=== PATIENT | female | born 1965 | race Two or more races ===

== ENCOUNTER 2022-07-18 08:26 | Emergency (ER) | payer OTHER ==
[~2022-07-18] VITALS: Ht 162.6 cm; Wt 81.0 kg
[2022-07-18] MEDS ORDERED: ACETAMINOPHEN 500 MG TAB PO ONE (09:00)
[2022-07-18 09:41] VITALS: BP 162/88
[2022-07-18] MEDS ORDERED: IBUP800T27 PO (09:48)
[2022-07-18] MEDS ORDERED: METH750T22 PO (09:48)
== END 2022-07-18 10:07 | disposition home or self-care (01) ==
LOC: ER 08:26 → EDBD 08:26 → ER 10:07
DX: S39.012A Strain of muscle, fascia and tendon of lower back, initial encounter (principal); S20.212A Contusion of left front wall of thorax, initial encounter; V49.9XXA Car occupant (driver) (passenger) injured in unspecified traffic accident, initial encounter; Y93.89 Activity, other specified; Y92.89 Other specified places as the place of occurrence of the external cause; Y99.8 Other external cause status
CPT/HCPCS: 71046; 72100; 72220

== ENCOUNTER 2024-07-08 10:40 | Inpatient (IN) | payer MEDICAID ==
[~2024-07-08] VITALS: Ht 142.2 cm; Wt 91.0 kg
[~2024-07-08 10:40] MED LIST: IBUP-1456 PO; METH-1182 PO
--- NOTE | 2024-07-08 10:59 | ED.PDOC ---
History of Present Illness HPI Comments 59-year-old female with PMHx HLD, HTN, DM, Asthma, Thyroid Disease presents with a chief complaint of chest pain, SOB, and fatigue x 1 week. Patient states that her pain is localized to her left chest, radiates down her left arm, describes as aching, and rates her pain a 9/10. Patient mentions that she is also having back pain and swelling to her bilateral feet. Patient denies having a PMD. Patient is slightly hypertensive at 145/93. Patient is wheezing upon auscultation. Time Seen by MD: 10:47 Reviewed Notes: Medications, Allergies Allergies: Coded Allergies: NO KNOWN ALLERGIES (Unverified , 07/18/22) Home Meds Active Scripts Methocarbamol (Methocarbamol) 750 Mg Tab, 750 MG PO QHSP PRN, #20 TAB Prov:VANDANA YAÑEZ 07/18/22 Ibuprofen (Ibuprofen) 800 Mg Tab, 1 TAB PO TID, #30 TAB Prov:VANDANA YAÑEZ 07/18/22 Information Source: Patient, Relative (Child) Mode of Arrival: Ambulatory Severity: Moderate Timing: Days Duration: Since onset Prehospital treatment: None Past Medical History PAST MEDICAL HISTORY: Asthma, DM, High Lipids, HTN, Thyroid Surgical History: Denies all surgeries GLOBAL MARKETING MANAGER History: Denies all GLOBAL MARKETING MANAGER Hx Family History Family History: Reviewed,noncontributory to illness Social History Smoker: Non-Smoker Alcohol: Denies ETOH Use Drugs: Denies Drug Use Lives In: Home Constitutional: reports: fatigue; denies: chills, diaphoresis, fever, malaise, sweats, weakness, others EENTM: denies: blurred vision, double vision, ear bleeding, ear discharge, ear drainage, ear pain, ear ringing, eye pain, eye redness, hearing loss, mouth pain, mouth swelling, nasal discharge, nose bleeding, nose congestion, nose pain, photophobia, tearing, throat pain, throat swelling, voice changes, others Respiratory: reports: shortness of breath; denies: cough, hemoptysis, orthopnea, SOB at rest, SOB with excertion, stridor, wheezing, others Cardiovascular: reports: chest pain; denies: dizzy spells, diaphoresis, Dyspnea on exertion, edema, irregular heart beat, left arm pain, lightheadedness, palpitations, PND, syncope, others Gastrointestinal: denies: abdomen distended, abdominal pain, blood streaked bowels, constipated, diarrhea, dysphagia, difficulty swallowing, hematemesis, melena, nausea, poor appetite, poor fluid intake, rectal bleeding, rectal pain, vomiting, others Genitourinary: denies: abnormal vagina bleeding, burning, dyspareunia, dysuria, flank pain, frequency, hematuria, incontinence, pain, , vagina discharge, urgency, others Neurological: denies: dizziness, fainting, headache, left sided numbness, left sided weakness, numbness, paresthesia, pre-existing deficit, right sided numbness, right sided weakness, seizure, speech problems, tingling, tremors, weakness, others Musculoskeletal: denies: back pain, gout, joint pain, joint swelling, muscle pain, muscle stiffness, neck pain, others Integumetry: denies: bruises, change in color, change in hair/nails, dryness, laceration, lesions, lumps, rash, wounds, others Allergic/Immunocompromised: denies: Difficulty Healing, Frequent Infections, Hives, Itching, others Hematologic/Lymphatic: denies: anemia, blood clots, easy bleeding, easy bruising, swollen glands, others Endocrine: denies: excessive hunger, excessive sweating, excessive thirst, excessive urination, flushing, intolerance to cold, intolerance to heat, unexplained weight gain, unexplained weight loss, others Psychiatric: denies: anxiety, bipolar disorder, depression, hopeless, panic disorder, schizophrenia, sleepless, suicidal, others All Other Systems: Reviewed and Negative Physical Exam General Appearance: Moderate Distress HEENT: Normal ENT Inspection, Pharynx Normal, TMs Normal Neck: Full Range of Motion, Non-Tender, Normal, Normal Inspection Respiratory: Chest Non-Tender, Lungs Clear, No Accessory Muscle Use, No Respiratory Distress, Normal Breath Sounds Cardiovascular: No Edema, No JVD, No Murmur, No Gallop, Normal Peripheral Pulses, Regular Rate/Rhythm Breast Exam: Deferred Gastrointestinal: No Organomegaly, Non Tender, No Pulsatile Mass, Normal Bowel Sounds, Soft Genitalia: Deferred Pelvic: Deferred Rectal: Deferred Extremities: No calf tenderness, Normal capillary refill, Normal inspection, Normal range of motion, Non-tender, No pedal edema Musculoskeletal : Apperance: Normal Neurologic: Alert, crusher foreman II-XII nml as Tested, No Motor Deficits, Normal Affect, Normal Mood, No Sensory Deficits Cerebellar Function: Normal Reflexes: Normal Skin: Dry, Normal Color, Warm Lymphatic: No Adenopathy Was a procedure done? Was a procedure done?: No Differential Dx Considerations may include: Sepsis, pneumonia, PE, ACS, ID X-Ray, Labs, Meds, VS Vital Signs Date Time Temp Pulse Resp B/P (MAP) Pulse Ox O2 Delivery O2 Flow Rate FiO2 07/08/24 18:35 98.8 115 20 155/87 (109) 98 98.8 07/08/24 14:43 99.8 118 16 133/64 (87) 94 99.8 07/08/24 14:43 118 16 94 Room Air* 0 21 07/08/24 14:27 98.7 07/08/24 11:13 18 92 Room Air* 0 21 21 07/08/24 11:01 126 07/08/24 11:00 102.2 123 18 145/93 (110) 92 Lab Test 07/08/24 17:41 07/08/24 13:17 07/08/24 12:00 07/08/24 11:08 Range/Units Influenza Type A Antigen Negative Negative Influenza Type B Antigen Negative Negative SARS-CoV-2 Antigen (Rapid) Negative NEGATIVE Troponin I High Sensitivity 7 8 9 </=34 ng/L Lactic Acid Level 1.9 0.4-2.0 mmol/L White Blood Count 16.0 H 4.4-10.8 10^3/uL Red Blood Count 4.65 4.0-5.20 10^6/uL Hemoglobin 13.5 12.2-16.2 g/dL Hematocrit 41.4 36.0-46.0 % Mean Corpuscular Volume 88.9 80.0-100.0 fL Mean Corpuscular Hemoglobin 29.0 28.0-32.0 pg Mean Corpuscular Hemoglobin Concent 32.7 32.0-36.0 g/dL Red Cell Distribution Width 13.8 11.8-14.3 % Platelet Count 303 140-450 10^3/uL Mean Platelet Volume 9.0 6.9-10.8 fL Neutrophils (%) (Auto) 37.0-80.0 % Lymphocytes (%) (Auto) 10.0-50.0 % Monocytes (%) (Auto) 0.0-12.0 % Basophils (%) (Auto) 0.0-2.0 % Neutrophils # (Auto) 1.6-8.6 10 ^3/uL Lymphocytes # (Auto) 0.4-5.4 10 ^3/uL Monocytes # (Auto) 0-1.3 10 ^3/uL Differential Total Cells Counted 100.0 100 Neutrophils % (Manual) 61 37.0-80.0 Band Neutrophils % (Manual) 5 Lymphocytes % (Manual) 25 10.0-50.0 Monocytes % (Manual) 7 0-12 Eosinophils % (Manual) 1 0-7 Basophils % (Manual) 0 0.0-2.0 Metamyelocytes % (manual) 1 Myelocytes % (Manual) 0 Promyelocytes % (Manual) 0 Blast Cells % (Manual) 0 Reactive Lymphocytes 0 Platelet Estimate Adequate D-Dimer, Quantitative 0.81 H 0.0-0.49 mg/L FEU Sodium Level 137 136-145 mmol/L Potassium Level 3.8 3.5-5.1 mmol/L Chloride Level 104 98-107 mmol/L Carbon Dioxide Level 23 20-31 mmol/L Anion Gap 10 5-15 Blood Urea Nitrogen < 5 L 9-23 mg/dL Creatinine 0.79 0.550-1.02 mg/dL Glomerular Filtration Rate Calc 86 >90 mL/min BUN/Creatinine Ratio 6.3 L 10.0-20.0 Serum Glucose 118 H 74-106 mg/dL Calcium Level 9.6 8.7-10.4 mg/dL B-Type Natriuretic Peptide 33.34 0-100 pg/mL Test 07/08/24 11:00 Range/Units Urine Color Yellow Yellow Urine Clarity Clear Clear Urine pH 6.0 5.0-9.0 Urine Specific [place] 1.017 1.001-1.035 Urine Protein Trace H Negative Urine Ketones 1+ H Negative Urine Blood Negative Negative /uL Urine Nitrite Negative Negative Urine Bilirubin Negative Negative Urine Urobilinogen Normal Negative mg/dL Urine Leukocyte Esterase Trace Negative /uL Urine RBC 2 0 - 4 /hpf Urine Microscopic WBC 1 0-5 /HPF Urine Squamous Epithelial Cells Few <5 /hpf Urine Bacteria None seen None Seen /hpf Urine Mucus Few None Seen Urine Glucose Normal Normal mg/dL Current Medications Medications (Trade) Dose Ordered Sig/Henry Route Start Time Stop Time Status Last Admin Methylprednisolone Sodium Succinate (Solu Medrol) 125 mg ONCE ONCE IV 07/08/24 11:00 07/08/24 11:01 DC 07/08/24 14:36 Ipratropium [place] (Atrovent Medneb) 1 mg ONCE ONCE HHN 07/08/24 11:00 07/08/24 11:01 DC 07/08/24 11:12 Albuterol (Ventolin Medneb) 20 mg ONCE ONCE HHN 07/08/24 11:00 07/08/24 11:01 DC 07/08/24 11:12 Acetaminophen (Tylenol Tablet) 650 mg ONCE ONCE PO 07/08/24 11:15 07/08/24 11:16 DC 07/08/24 14:27 Chest X-Ray Impression: No acute cardiopulmonary disease. IV Hep-Lock was established The patient was given Solu-Medrol 125 mg IV push The patient was given a continuous breathing treatment of albuterol and Atrovent For the fever, the patient was given 650 mg of Tylenol The D-dimer is slightly elevated at 0.81 The chemistry panel is within normal limits [place] [address] The troponin level x3 is negative The COVID test as well as influenza a and influenza B are negative At this time, the patient was being admitted to the hospitalist The lactic acid levels within normal limits Images Reviewed?: Images reviewed and evaluated by me Time of 1ST Reevaluation: 11:17 Reevaluation 1ST: Unchanged Patient Education/Counseling: Diagnosis, Treatment, Prognosis Family Education/Counseling: Diagnosis, Treatment, Prognosis Departure 1 Departure Time of Disposition: 19:01 Impression: Primary Impression: Acute chest pain Additional Impression: Fever Qualified Codes: R50.9 - Fever, unspecified Disposition: 09 ADMITTED INPATIENT Admit to: [facility] Condition: Fair Critical Care Note Critical Care Time?: Yes (45 min-critical care time only) Stability Stability form required: Yes Unstable for transfer: Telemetry monitoring (Telemetry monitoring required), ED Physician Assesment (Clinical assesment) Heart Score Heart Score: Heart Score Response (Comments) Value History Moderate Suspicious 1 EKG Normal 0 Age 45-64 1 Risk Factors >3 or Hx ASHD 2 Troponin Normal limit 0 Total 4 I personally scribed for TEODORO GIL MD ([email or web address]) on 2/5/25 at 10:59. Electronically submitted by Broderick Daugherty ([email or web address]). I personally scribed for TEODORO GIL MD ([email or web address]) on 07/08/24 at 12:05. Electronically submitted by Broderick Daugherty ([email or web address]). TEODORO GIL MD Jul 08, 2024 10:59
--- NOTE | 2024-07-08 11:05 | ECG ---
[facility] Test Date: 2024-07-08 Test Time: 11:01:25 Pat Name: BONNIE GUADARRAMA Department: ER Room: Gender: F Entry Level Project Engineer: GV : 1965 Requested By: TEODORO GIL Order Number: [id number] Reading MD: Enrique Cat Measurements Intervals [place] Rate: 126 P: 42 ME: 127 QRS: 105 QRSD: 74 T: -3 QT: 289 QTc: 419 Interpretive Statements Sinus tachycardia Ventricular premature complex Right axis deviation Low voltage, precordial leads Borderline T wave abnormalities Electronically Signed On 07-08-2024 13:35:24 PST by Enrique Cat Please click the below link to view image of tracing.
[2024-07-08] MEDS: IPRATROPIUM BROM 0.5 MG/2.5ML INH SOL HHN ONE (11:12)
[2024-07-08] MEDS: ALBUTEROL SULF 2.5 MG/0.5ML(0.5%) NEB SOLN HHN ONE (11:12)
[2024-07-08 11:32] LABS: Chloride 104 mmol/L (98-107); Potassium 3.8 mmol/L (3.5-5.1); Sodium 137 mmol/L (136-145)
[2024-07-08 11:33] LABS: Anion Gap 10 (5-15); Carbon Dioxide 23 mmol/L (20-31)
[2024-07-08 11:34] LABS: Calcium 9.6 mg/dL (8.7-10.4)
--- NOTE | 2024-07-08 11:38 | DVH ---
EXAM: XY CHEST TWO VIEWS ROUTINE CLINICAL HISTORY: sob COMPARISON: CHEST TWO VIEWS ROUTINE on DOS: 07/18/22, CXR2 on DOS: 07/18/22 TECHNIQUE: Frontal and lateral view of the chest was obtained FINDINGS: Lines and Tubes: None Lungs: No focal consolidation. Pleura: No effusion. No pneumothorax. Cardiomediastinal contours: Unremarkable Pulmonary vasculature: Within normal limits. Bones: No acute osseous abnormality. IMPRESSION: 1. No acute cardiopulmonary disease. HS:Y
[2024-07-08 11:41] LABS: BUN/Creatinine Ratio 6.3 (10.0-20.0); Blood Urea Nitrogen < 5 mg/dL (9-23); Glucose 118 mg/dL (74-106)
[2024-07-08 11:58] LABS: Hematocrit 41.4 % (36.0-46.0); Hemoglobin 13.5 g/dL (12.2-16.2); Mean Corpuscular Hgb Conc. 32.7 g/dL (32.0-36.0); Mean Corpuscular Volume 88.9 fL (80.0-100.0); Platelet Count (auto) 303 10^3/uL (140-450); Red Blood Cells 4.65 10^6/uL (4.0-5.20); Red Cell Distribution Width 13.8 % (11.8-14.3)
[2024-07-08 12:12] LABS: Basophils % (manual) 0 (0.0-2.0); Blast Cells 0; Myelocytes % 0; Promyelocytes % 0; Reactive Lymphocytes 0
[2024-07-08 13:01] LABS: Band Neutrophils % (manual) 5; Eosinophils % (manual) 1 (0-7); Lymphocytes % (manual) 25 (10.0-50.0); Metamyelocytes % 1; Monocytes % (manual) 7 (0-12); Platelet Estimate Adequate
[2024-07-08] MEDS: ACETAMINOPHEN 325 MG TAB PO ONE (14:27)
[2024-07-08] MEDS: methylPREDNISolone SOD SUCC 125 MG/2 ML VL IV ONE (14:36)
[2024-07-08 14:43] VITALS: PULSE 118; RESP 16; O2SAT 94
[2024-07-08 17:08] LABS: Urine Bacteria None Seen /hpf (None Seen)
[2024-07-08 17:26] LABS: Urine Blood Negative /uL (Negative); Urine Clarity Clear (Clear); Urine Color Yellow (Yellow); Urine Mucus FEW (None Seen); Urine Protein, UAD TRACE (Negative); Urine Specific Gravity 1.017 (1.001-1.035); Urine Squamous Epithelial Cell FEW /hpf (<5); Urine Urobilinogen Normal (Negative); Urine WBC 1 /HPF (0-5)
[2024-07-08 18:27] LABS: COVID19 ANTIGEN SOFIA FIA NEGATIVE (NEGATIVE); Rapid Influenza A Negative (Negative); Rapid Influenza B Negative (Negative)
[2024-07-08] MEDS ORDERED: ONDANSETRON HCL 4 MG/2 ML VIAL IV PRN (19:15)
[2024-07-08] MEDS ORDERED: TEMAZEPAM 15 MG CAP PO PRN (19:15)
[2024-07-08] MEDS ORDERED: ACETAMINOPHEN 325 MG TAB PO PRN (19:15)
[2024-07-08 19:32] VITALS: O2SAT 94
[2024-07-08] MEDS: cefTRIAXone 1GM/50ML D5W 50 ML IV ONE (19:40)
[2024-07-08] MEDS: IOHEXOL 350 MG/ML 100ML IJ ONE (20:46)
--- NOTE | 2024-07-08 21:04 | DVH ---
INDICATION: r/o pe COMPARISON: None TECHNIQUE: Multidetector CTA of the chest was performed of the chest with 100 cc of intravenous contr ast. PULMONARY ANGIOGRAPHY PROTOCOL was utilized using a bolus-tracking technique centered on the johnson n pulmonary artery. Axial, coronal and sagittal multiplanar and MIP reformats were performed. Radiation Dose : 1. Chest: CTDI volume is 27.6 mGy. Dose-length product is 1043.09 mGy*cm The dose indicators for CT are the volume Computed Tomography (CT) Dose Index (CTDIvol) and the Dose Length Product (DLP), and are measured in units of mGy and mGy-cm, respectively. These indicators are not patient dose, but values generated from the CT scanner acquisition factors. The report includes radiation exposure data for exposures received during this examination. Findings: Thyroid gland is unremarkable. No pulmonary embolism. Pulmonary trunk is normal in size. No evidence of aortic aneurysm. [id number] cardiomegaly. Mediastinal lymphadenopathy measuring up to 1 cm. Bilateral hilar lymphadenopathy. Patchy and nodular opacities of bilateral lungs. No pneumothorax or pleural effusion. Hepatic steatosis. Small hiatal hernia. Gas-filled minimally distended esophagus. Mild gastric wall t hickening. Otherwise, partial view of the upper abdomen is unremarkable. The soft tissues are unremarkable. No destructive osseous lesions are noted. IMPRESSION: No pulmonary embolism. No aortic aneurysm or dissection. Bilateral lung multifocal pneumonia. Mediastinal and hilar lymphadenopathy which are most likely reactive. Small hiatal hernia. Mild gastric wall thickening which may be due to inadequate distention/gastriti s
[2024-07-08 22:30] VITALS: BP 115/73; PULSE 96; RESP 19; TEMP 97.4; O2SAT 92
--- NOTE | 2024-07-08 22:41 | DVHHP2 ---
History of Present Illness Reason for Visit: Shortness for breath History of Present Illness 59-year-old female presents for evaluation of shortness for breath with associated cough with yellow phlegm over the past one-week. She also reports fatigue and generalized weakness. Denies fever or chills. No other acute complaints reported. Past Medical History Prediabetic Hypertension Past Surgical History Denies Family History Noncontributory Smoke: No ALCOHOL: none Drugs: None Lives: with Family Review of Systems Review of Systems Review of systems are currently negative otherwise addressed in HPI. Allergies: Coded Allergies: NO KNOWN ALLERGIES (Unverified , 07/18/22) Medications Current Medications Medications Dose Ordered Sig/Henry Route Start Time Stop Time Status Last Admin Dose Admin Albuterol 2.5 mg Q6HPRN PRN NEB 07/08/24 19:15 Ceftriaxone Sodium 50 ml @ 100 mls/hr DAILY@09 IV 07/09/24 09:00 Aspirin 81 mg DAILY PO 07/09/24 10:00 Temazepam 15 mg QHSP PRN PO 07/08/24 19:15 Ondansetron HCl 4 mg Q4HP PRN IV 07/08/24 19:15 Acetaminophen 650 mg Q6HP PRN PO 07/08/24 19:15 Azithromycin 250 ml @ 125 mls/hr Q24H IV 07/09/24 23:00 Exam Vital Signs Vital Signs Date Time Temp Pulse Resp B/P (MAP) Pulse Ox O2 Delivery O2 Flow Rate FiO2 07/08/24 19:47 98.9 101 16 117/58 (77) 94 98.9 07/08/24 19:32 Room Air* 0 21 Exam Gen: 59-year-old female in mild distress Skin: Warm, dry, normal color and texture, no rash. HEENT: Normocephalic atraumatic, mucous membranes moist and pink. Neck: Cervical and supraclavicular nodes normal without enlargement, trachea is midline, thyroid gland is normal without masses. Pulmonary: Bilateral rhonchi Cardiac: Regular rate and rhythm. No murmur Abdomen: Soft, nontender, nondistended, bowel sounds present all 4 quadrants, no guarding, no rigidity, no organomegaly. Extremities: No cyanosis, clubbing, no edema Neuro: Cranial nerves II through XII grossly intact, normal affect and speech, no focal motor deficits. Labs/Xrays ORDERING PHYSICIAN: REESE NGO PROCEDURE(s): CTACH - CT ANGIO CHEST CONTRAST REASON: r/o pe ORDER NUMBER(s): [id number], ACCESSION NUMBER(s): [id number] INDICATION: r/o pe COMPARISON: None TECHNIQUE: Multidetector CTA of the chest was performed of the chest with 100 cc of intravenous contrast. PULMONARY ANGIOGRAPHY PROTOCOL was utilized using a bolus-tracking technique centered on the main pulmonary artery. Axial, coronal and sagittal multiplanar and MIP reformats were performed. Radiation Dose : 1. Chest: CTDI volume is 27.6 mGy. Dose-length product is 1043.09 mGy*cm The dose indicators for CT are the volume Computed Tomography (CT) Dose Index (CTDIvol) and the Dose Length Product (DLP), and are measured in units of mGy and mGy-cm, respectively. These indicators are not patient dose, but values generated from the CT scanner acquisition factors. The report includes radiation exposure data for exposures received during this examination. Findings: Thyroid gland is unremarkable. No pulmonary embolism. Pulmonary trunk is normal in size. No evidence of aortic aneurysm. [id number]-[id number] cardiomegaly. Mediastinal lymphadenopathy measuring up to 1 cm. Bilateral hilar lymphadenopathy. Patchy and nodular opacities of bilateral lungs. No pneumothorax or pleural effusion. Hepatic steatosis. Small hiatal hernia. Gas-filled minimally distended esophagus. Mild gastric wall thickening. Otherwise, partial view of the upper abdomen is unremarkable. The soft tissues are unremarkable. No destructive osseous lesions are noted. IMPRESSION: No pulmonary embolism. No aortic aneurysm or dissection. Bilateral lung multifocal pneumonia. Mediastinal and hilar lymphadenopathy which are most likely reactive. Small hiatal hernia. Mild gastric wall thickening which may be due to inadequate distention/gastritis Labs Test 07/08/24 17:41 07/08/24 13:17 07/08/24 12:00 07/08/24 11:08 Range/Units Influenza Type A Antigen Negative Negative Influenza Type B Antigen Negative Negative SARS-CoV-2 Antigen (Rapid) Negative NEGATIVE Troponin I High Sensitivity 7 </=34 ng/L Lactic Acid Level 1.9 0.4-2.0 mmol/L White Blood Count 16.0 H 4.4-10.8 10^3/uL Red Blood Count 4.65 4.0-5.20 10^6/uL Hemoglobin 13.5 12.2-16.2 g/dL Hematocrit 41.4 36.0-46.0 % Mean Corpuscular Volume 88.9 80.0-100.0 fL Mean Corpuscular Hemoglobin 29.0 28.0-32.0 pg Mean Corpuscular Hemoglobin Concent 32.7 32.0-36.0 g/dL Red Cell Distribution Width 13.8 11.8-14.3 % Platelet Count 303 140-450 10^3/uL Mean Platelet Volume 9.0 6.9-10.8 fL Neutrophils (%) (Auto) 37.0-80.0 % Lymphocytes (%) (Auto) 10.0-50.0 % Monocytes (%) (Auto) 0.0-12.0 % Basophils (%) (Auto) 0.0-2.0 % Neutrophils # (Auto) 1.6-8.6 10 ^3/uL Lymphocytes # (Auto) 0.4-5.4 10 ^3/uL Monocytes # (Auto) 0-1.3 10 ^3/uL Differential Total Cells Counted 100.0 100 Neutrophils % (Manual) 61 37.0-80.0 Band Neutrophils % (Manual) 5 Lymphocytes % (Manual) 25 10.0-50.0 Monocytes % (Manual) 7 0-12 Eosinophils % (Manual) 1 0-7 Basophils % (Manual) 0 0.0-2.0 Metamyelocytes % (manual) 1 Myelocytes % (Manual) 0 Promyelocytes % (Manual) 0 Blast Cells % (Manual) 0 Reactive Lymphocytes 0 Platelet Estimate Adequate D-Dimer, Quantitative 0.81 H 0.0-0.49 mg/L FEU Sodium Level 137 136-145 mmol/L Potassium Level 3.8 3.5-5.1 mmol/L Chloride Level 104 98-107 mmol/L Carbon Dioxide Level 23 20-31 mmol/L Anion Gap 10 5-15 Blood Urea Nitrogen < 5 L 9-23 mg/dL Creatinine 0.79 0.550-1.02 mg/dL Glomerular Filtration Rate Calc 86 >90 mL/min BUN/Creatinine Ratio 6.3 L 10.0-20.0 Serum Glucose 118 H 74-106 mg/dL Calcium Level 9.6 8.7-10.4 mg/dL B-Type Natriuretic Peptide 33.34 0-100 pg/mL Test 07/08/24 11:00 Range/Units Urine Color Yellow Yellow Urine Clarity Clear Clear Urine pH 6.0 5.0-9.0 Urine Specific [place] 1.017 1.001-1.035 Urine Protein Trace H Negative Urine Ketones 1+ H Negative Urine Blood Negative Negative /uL Urine Nitrite Negative Negative Urine Bilirubin Negative Negative Urine Urobilinogen Normal Negative mg/dL Urine Leukocyte Esterase Trace Negative /uL Urine RBC 2 0 - 4 /hpf Urine Microscopic WBC 1 0-5 /HPF Urine Squamous Epithelial Cells Few <5 /hpf Urine Bacteria None seen None Seen /hpf Urine Mucus Few None Seen Urine Glucose Normal Normal mg/dL Assessment/Plan Assessment/Plan Assessment Multifocal pneumonia Acute respiratory distress Plan Admit the patient to Med surge to the hospitalist Rocephin/azithromycin Med nebs Continue treatment per orders. Plan discussed with: Patient My Orders Orders - REESE NGO Procedure Category Date Status Time Albuterol Medneb PHA 07/08/24 In Process (Ventolin Medneb) 19:[address] 07/08/24 Resulted Contrast 19:09 Ceftriaxone 1gm/50ml PHA 07/09/24 In Process D5w (Rocephin) 09:00 Aspirin Tablet PHA 07/09/24 In Process 10:00 Temazepam (Restoril) PHA 07/08/24 In Process 19:15 Ondansetron Hcl PHA 07/08/24 In Process (Zofran) 19:15 Complete Blood Count LAB 07/09/24 Verified 04:00 Cardiac DIET 07/09/24 Transmitted Diet-2gna,Lofat,Lochol Breakfast Echo 2d Mode Cardiac US 07/08/24 Logged DOP 19:09 Condition: Stable BAUTISTA 07/08/24 In Process 19:09 Acetaminophen Tablet PHA 07/08/24 In Process (Tylenol Tablet) 19:15 Bedrest With Bathroom BAUTISTA 07/08/24 In Process Privileg 19:09 Admit ADMIT 07/08/24 Transmitted 22:31 Azithromycin 500mg/ PHA 07/09/24 In Process 250ml (Zithromax 50 23:00 Azithromycin 500mg/ PHA 07/08/24 In Process 250ml (Zithromax 50 22:45 Date of Service: Jul 08, 2024 Billing Provider: REESE NGO Common Visit Codes: [id number] INP/OBS CARE (HIGH) REESE NGO Jul 08, 2024 22:41
[2024-07-08] MEDS: AZITHROMYCIN 500MG/ 250ML 250 ML IV ONE (22:45)
[2024-07-08 23:38] VITALS: PULSE 88; RESP 18
[2024-07-08 23:49] VITALS: BP 117/58; PULSE 101; RESP 16; TEMP 98.9; O2SAT 94
[2024-07-09] VITALS (9 sets, daily range): BP systolic 125–144; BP diastolic 63–81; PULSE 99–120; RESP 16–21; TEMP 97.6–98.3; O2SAT 93–100
[2024-07-09 08:39] LABS: Basophils # (auto) 0 10 ^3/uL (0-0.2); Basophils % (auto) 0.2 % (0.0-2.0); Eosinophils # (auto) 0 10 ^3/uL (0-0.8); Eosinophils % (auto) 0.2 % (0.0-7.0); Hemoglobin 13.2 g/dL (12.2-16.2); Lymphocytes # (auto) 2.3 10 ^3/uL (0.4-5.4); Lymphocytes % (auto) 11.5 % (10.0-50.0); Mean Corpuscular Hemoglobin 29.8 pg (28.0-32.0); Mean Corpuscular Hgb Conc. 33.1 g/dL (32.0-36.0); Mean Corpuscular Volume 89.8 fL (80.0-100.0); Monocytes # (auto) 0.6 10 ^3/uL (0-1.3); Monocytes % (auto) 3.1 % (0.0-12.0); Neutrophils # (auto) 16.6 10 ^3/uL (1.6-8.6); Nucleated Red Blood Cells % 0.2 %; Platelet Count (auto) 312 10^3/uL (140-450); Red Blood Cells 4.45 10^6/uL (4.0-5.20); Red Cell Distribution Width 13.9 % (11.8-14.3); White Blood Cell 19.5 10^3/uL (4.4-10.8)
[2024-07-09] MEDS: ALBUTEROL SULF 2.5 MG/0.5ML(0.5%) NEB SOLN NEB PRN (09:26)
[2024-07-09] MEDS: ASPirin 81 mg TAB PO SCH (10:36)
[2024-07-09] MEDS: cefTRIAXone 1GM/50ML D5W 50 ML IV SCH (11:04)
[2024-07-09] MEDS: predniSONE 20 MG TAB PO ONE (13:22)
--- NOTE | 2024-07-09 13:28 | DVHPN2 ---
Assessment/Plan Assessment/Plan Progress note 59 F admitted for SOB, found to have multifocal PNA. 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 Physical exam Alert oriented x3 b/l scattered rhonchi s1 s2 rrr no murmur abdomen soft nontender trace le edema labs ekg imaging reviewed assessment and plan acute asthma exacerbation multifocal PNA, atypical vs fungal vs viral possible latent TB morbid obesity leukocytosis maintain spo2 >95% albuterol nebs empiric ceft and azithro sputum culture, quantiferon, legionela, HIV prednisone diet regular dvt ppx ambilatory Plan discussed with: Patient My Orders Orders - LETTY WEAVER MD Procedure Category Date Status Time Respiratory Culture NEEL 07/09/24 Logged W/ Gs 11:47 Quantiferon-Tb Gold LAB 07/09/24 In Process 11:47 Legionella LAB 07/09/24 In Process Pneumophila Abs 11:47 Prednisone Tablet PHA 07/10/24 In Process 10:00 Date of Service: Jul 09, 2024 Billing Provider: LETTY WEAVER MD Common Visit Codes: [id number] INP/OBS CARE(HIGH) LETTY WEAVER MD Jul 09, 2024 13:28
--- NOTE | 2024-07-09 17:53 | DVHSR ---
APPROVED REPORT EXAM: LIMITED Two-dimensional and M-mode echocardiogram with Doppler and color Doppler. Blood Pressure: 125/71 mmHg INDICATION Chest Pain RISK FACTORS Obesity: Height: 4'8, Weight: 199 DIMENSIONS LVDd3.8 (3.8-5.7cm)LA (2D)3.0 (1.9-4.0cm)Aortic Root3.3 (2.0-3.7cm) LVDs2.4 (2.5-4.0cm)LA (MM) (1.9-4.0cm)Aortic Cusp Exc1.5 (1.5-2.0cm) EF (%) 65.0 (55-70%)Rt. Atrium2.5 (1.9-4.0cm)Asc. Aorta cm IVSd0.8 (0.7-1.1cm)RV (D) (1.8-2.4cm) PWd1.0 (0.7-1.1cm) Mitral Valve MitralMitral Stenosis E wave0.67m/sMV Mean GR.mmHg A wave1.09m/sMV Peak GR.mmHg E/A ratio0.62D MVAcm2 DECEL [id number] 1/2 Timems Aortic Valve Aortic ValveAortic Stenosis V11.55m/Brunilda Mean GR.7mmHg V21.56m/Brunilda Peak GR.10mmHg LVOT Diameter1.5 (1.8-2.4cm)Doppler AVA1.75cm2 Tricuspid Valve TR Velocity2.44m/s [id number] Other Information Quality : Technically LimitedRhythm : Technically limited study due to pt sitting upright Conclusion Technically good study. Sinus rhythm. Normal chamber sizes. Valves are normal. EF of 60% with normal RV function. Dopplers unremarkable. No pericardial effusion masses or vegetations.
--- NOTE | 2024-07-09 20:27 | DVHINCON2 ---
Date of service: Jul 09, 2024 Referring Physician Philip Garcia MD Reason for Consultation Asthma exacerbation and multifocal pneumonia History of Present Illness A 59-year-old woman with past medical history of hypertension and prediabetes who presented to ED on 07/08/24 for evaluation of shortness of breath with associated cough with yellow phlegm for the past 1 week. She also reported fatigue and generalized weakness. Denied fever or chills. No other acute complaints reported. Patient was admitted for further care and pulmonary consultation is requested for evaluation and management due to asthma exacerbation and multifocal pneumonia. Review of Systems: 14-point review of systems negative unless otherwise noted above. Past Medical History: Hypertension and prediabetes Past Surgical History: None Medications: Reviewed. Allergies: No known drug allergies. Family History: Diabetes mellitus and prostate cancer. Social History: Nonsmoker. No alcohol or illicit drug use. Family History: Diabetes mellitus G8 MOTHER FH: prostate cancer G8 FATHER Allergies: Coded Allergies: NO KNOWN ALLERGIES (Unverified , 07/18/22) Home Meds No Active Prescriptions or Reported Meds Current Medications Current Medications Medications (Trade) Dose Ordered Sig/Henry Route PRN Reason Start Time Stop Time Status Last Admin Ceftriaxone Sodium 50 ml @ 100 mls/hr DAILY@09 IV 07/09/24 09:00 07/09/24 11:04 Aspirin 81 mg DAILY PO 07/09/24 10:00 07/09/24 10:36 Azithromycin 250 ml @ 125 mls/hr Q24H IV 07/09/24 23:00 Prednisone 40 mg DAILY PO 07/10/24 10:00 Acetylcysteine (Mucomyst Inhalation 20%) 200 mg Q8HR NEB 07/09/24 22:00 07/12/24 21:59 UNV Vital Signs Vital Signs Date Time Temp Pulse Resp B/P (MAP) Pulse Ox O2 Delivery O2 Flow Rate FiO2 07/09/24 19:06 94 Room Air 0.0 07/09/24 19:06 21 07/09/24 17:00 97.7 109 18 133/80 (97) 97.7 Physical Exam Gen.: Patient lying in bed in no apparent distress. Breathing on room air. Head: Normocephalic, atraumatic. Eyes: EOMI/PERRLA. Ears: Normal hearing. Normal anatomy. Neck/trachea: Trachea midline, supple. Nose: Normal external anatomy. Mouth: Moist mucous membranes. Chest: Decreased air entry bilaterally. No wheezing or rhonchi. Cardiovascular: Positive S1, positive S2. Regular rate and rhythm. Abdomen: Positive bowel sounds in all 4 quadrants. Soft, non-tender, non- distended. : Deferred. Rectal: Deferred. Skin: Warm, dry. Intact. Extremities: 2+ radial pulses bilaterally. No lower extremity edema. Neuro: Awake, alert, oriented x3. No gross motor or sensory deficits. Cranial nerves II through XII intact. Gait not assessed. Labs/Diagnostic Data Labs Test 07/09/24 12:57 07/09/24 07:38 07/08/24 17:41 07/08/24 13:17 Range/Units White Blood Count 19.5 H 4.4-10.8 10^3/uL Red Blood Count 4.45 4.0-5.20 10^6/uL Hemoglobin 13.2 12.2-16.2 g/dL Hematocrit 40.0 36.0-46.0 % Mean Corpuscular Volume 89.8 80.0-100.0 fL Mean Corpuscular Hemoglobin 29.8 28.0-32.0 pg Mean Corpuscular Hemoglobin Concent 33.1 32.0-36.0 g/dL Red Cell Distribution Width 13.9 11.8-14.3 % Platelet Count 312 140-450 10^3/uL Mean Platelet Volume 9.0 6.9-10.8 fL Neutrophils (%) (Auto) 85.0 H 37.0-80.0 % Lymphocytes (%) (Auto) 11.5 10.0-50.0 % Monocytes (%) (Auto) 3.1 0.0-12.0 % Eosinophils (%) (Auto) 0.2 0.0-7.0 % Basophils (%) (Auto) 0.2 0.0-2.0 % Neutrophils # (Auto) 16.6 H 1.6-8.6 10 ^3/uL Lymphocytes # (Auto) 2.3 0.4-5.4 10 ^3/uL Monocytes # (Auto) 0.6 0-1.3 10 ^3/uL Eosinophils # (Auto) 0 0-0.8 10 ^3/uL Basophils # (Auto) 0 0-0.2 10 ^3/uL Nucleated Red Blood Cells 0.2 % HIV (1&2) Antibody Negative Negative Influenza Type A Antigen Negative Negative Influenza Type B Antigen Negative Negative SARS-CoV-2 Antigen (Rapid) Negative NEGATIVE Troponin I High Sensitivity 7 </=34 ng/L Test 07/08/24 12:00 07/08/24 11:08 07/08/24 11:00 Range/Units Lactic Acid Level 1.9 0.4-2.0 mmol/L Differential Total Cells Counted 100.0 100 Neutrophils % (Manual) 61 37.0-80.0 Band Neutrophils % (Manual) 5 Lymphocytes % (Manual) 25 10.0-50.0 Monocytes % (Manual) 7 0-12 Eosinophils % (Manual) 1 0-7 Basophils % (Manual) 0 0.0-2.0 Metamyelocytes % (manual) 1 Myelocytes % (Manual) 0 Promyelocytes % (Manual) 0 Blast Cells % (Manual) 0 Reactive Lymphocytes 0 Platelet Estimate Adequate D-Dimer, Quantitative 0.81 H 0.0-0.49 mg/L FEU Sodium Level 137 136-145 mmol/L Potassium Level 3.8 3.5-5.1 mmol/L Chloride Level 104 98-107 mmol/L Carbon Dioxide Level 23 20-31 mmol/L Anion Gap 10 5-15 Blood Urea Nitrogen < 5 L 9-23 mg/dL Creatinine 0.79 0.550-1.02 mg/dL Glomerular Filtration Rate Calc 86 >90 mL/min BUN/Creatinine Ratio 6.3 L 10.0-20.0 Serum Glucose 118 H 74-106 mg/dL Calcium Level 9.6 8.7-10.4 mg/dL B-Type Natriuretic Peptide 33.34 0-100 pg/mL Urine Color Yellow Yellow Urine Clarity Clear Clear Urine pH 6.0 5.0-9.0 Urine Specific [place] 1.017 1.001-1.035 Urine Protein Trace H Negative Urine Ketones 1+ H Negative Urine Blood Negative Negative /uL Urine Nitrite Negative Negative Urine Bilirubin Negative Negative Urine Urobilinogen Normal Negative mg/dL Urine Leukocyte Esterase Trace Negative /uL Urine RBC 2 0 - 4 /hpf Urine Microscopic WBC 1 0-5 /HPF Urine Squamous Epithelial Cells Few <5 /hpf Urine Bacteria None seen None Seen /hpf Urine Mucus Few None Seen Urine Glucose Normal Normal mg/dL Microbiology Date/Time Source Procedure Growth Status 07/08/24 12:00 Blood Blood Culture - Preliminary NO GROWTH AFTER 24 HOURS OF INCUBATION. Resulted Assessment Impression: Acute asthma exacerbation Multifocal pneumonia Morbid obesity Leukocytosis Plan: Supplemental oxygen PRN Titrate to keep O2 sats above 92%. Discussed bronchoscopy. Patient deferred for now. Will consider if changes in status or increase in O2 requirements. CT angio revealed no pulmonary embolism. Bilateral lung multifocal pneumonia. Mediastinal and hilar lymphadenopathy, most likely reactive. Small hiatal hernia. Continue bronchodilators/Mucomyst. Continue antibiotics Monitor renal function. Monitor electrolytes. Supplement as necessary. Monitor ins and outs. Monitor WBC. Diet and lifestyle modifications for weight reduction Morbid obesity - complicates all care DVT prophylaxis. Prognosis: Poor given patient's multiple co-morbidities. Rest of plan per hospitalist and other consultants. Thank you Dr. Garcia for allowing me to participate in this patient's care. Further recommendations will depend on the patient's clinical course. Please do not hesitate to contact me if you have any questions or concerns. This medical document was created using an electronic medical record system with [employer] computerized dictation system. Although these documentations are being carefully reviewed, there may still be some phonetic and typographical changes. The errors are purely typographical, due to imperfection on the software program, and do not reflect any compromise in the patient's medical care. Plan discussed with: Patient, Other (RN/MD Garcia) TED BANKS MD Jul 09, 2024 20:26
[2024-07-09] MEDS: AZITHROMYCIN 500MG/ 250ML 250 ML IV SCH (21:25)
[2024-07-09] MEDS: ACETYLCYSTEINE 20%(200MG/ML) SOL 4ML NEB SCH (23:07)
[2024-07-10] VITALS (11 sets, daily range): BP systolic 130–148; BP diastolic 73–86; PULSE 73–112; RESP 16–20; TEMP 97.5–98.2; O2SAT 93–100
[2024-07-10] MEDS: predniSONE 20 MG TAB PO SCH (09:57)
[2024-07-10 11:32] LABS: Hematocrit 38.5 % (36.0-46.0); Hemoglobin 13.1 g/dL (12.2-16.2); Mean Corpuscular Hgb Conc. 33.9 g/dL (32.0-36.0); Mean Corpuscular Volume 88.4 fL (80.0-100.0); Platelet Count (auto) 311 10^3/uL (140-450); Red Blood Cells 4.35 10^6/uL (4.0-5.20); Red Cell Distribution Width 13.7 % (11.8-14.3)
[2024-07-10 11:49] LABS: Basophils % (manual) 0 (0.0-2.0); Blast Cells 0; Eosinophils % (manual) 0 (0-7); Promyelocytes % 0; Reactive Lymphocytes 0
[2024-07-10 11:52] LABS: Chloride 105 mmol/L (98-107); Sodium 139 mmol/L (136-145)
[2024-07-10 11:53] LABS: Anion Gap 8 (5-15); Calcium 9.2 mg/dL (8.7-10.4); Carbon Dioxide 26 mmol/L (20-31)
[2024-07-10 11:58] LABS: Blood Urea Nitrogen 20 mg/dL (9-23)
[2024-07-10 12:09] LABS: Glucose 126 mg/dL (74-106); Potassium 3.2 mmol/L (3.5-5.1)
[2024-07-10 14:00] LABS: Band Neutrophils % (manual) 1; Lymphocytes % (manual) 42 (10.0-50.0); Metamyelocytes % 2; Monocytes % (manual) 3 (0-12); Myelocytes % 1
[2024-07-10 14:01] LABS: Platelet Estimate Adequate
[2024-07-10] MEDS: POTASSIUM EFFERVESENT TAB 25 MEQ PO ONE (18:19)
--- NOTE | 2024-07-10 20:49 | DVHPN2 ---
Assessment/Plan Assessment/Plan Progress note 59 F admitted for SOB, found to have multifocal PNA. 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 seen by me during rounds on room air, speaking full sentences, no distress. pending culture and quantiferon result. seen by pulm, patient deferred bronch for now Physical exam Alert oriented x3 b/l scattered rhonchi s1 s2 rrr no murmur abdomen soft nontender trace le edema labs ekg imaging reviewed assessment and plan acute asthma exacerbation multifocal PNA, atypical vs fungal vs viral possible latent TB morbid obesity leukocytosis maintain spo2 >95% albuterol nebs empiric ceft and azithro sputum culture, quantiferon, legionela, HIV prednisone diet regular dvt ppx ambilatory Plan discussed with: Patient My Orders Orders - LETTY WEAVER MD Procedure Category Date Status Time Basic Metabolic Panel LAB 07/11/24 Verified 04:00 Complete Blood Count LAB 07/11/24 Verified 04:00 Magnesium LAB 07/11/24 Verified 04:00 Phosphorus LAB 07/11/24 Verified 04:00 Date of Service: Jul 10, 2024 Billing Provider: LETTY WEAVER MD Common Visit Codes: [id number] INP/OBS CARE(HIGH) LETTY WEAVER MD Jul 10, 2024 20:49
[2024-07-11] VITALS (15 sets, daily range): BP systolic 101–150; BP diastolic 56–79; PULSE 75–114; RESP 14–20; TEMP 97.8–98.1; O2SAT 91–99
[2024-07-11 03:29] LABS: Anion Gap 9 (5-15); Carbon Dioxide 26 mmol/L (20-31); Chloride 105 mmol/L (98-107); Potassium 3.9 mmol/L (3.5-5.1); Sodium 140 mmol/L (136-145)
[2024-07-11 03:30] LABS: Calcium 9.1 mg/dL (8.7-10.4)
[2024-07-11 03:35] LABS: Blood Urea Nitrogen 18 mg/dL (9-23); Hematocrit 38.1 % (36.0-46.0); Hemoglobin 12.8 g/dL (12.2-16.2); Magnesium 2.4 mg/dL (1.6-2.6); Mean Corpuscular Hemoglobin 29.8 pg (28.0-32.0); Mean Corpuscular Hgb Conc. 33.5 g/dL (32.0-36.0); Mean Corpuscular Volume 88.9 fL (80.0-100.0); Platelet Count (auto) 318 10^3/uL (140-450); Red Blood Cells 4.29 10^6/uL (4.0-5.20); Red Cell Distribution Width 13.9 % (11.8-14.3); White Blood Cell 19.3 10^3/uL (4.4-10.8)
[2024-07-11 03:36] LABS: Basophils % (manual) 0 (0.0-2.0); Blast Cells 0; Eosinophils % (manual) 0 (0-7); Glucose 120 mg/dL (74-106); Promyelocytes % 0; Reactive Lymphocytes 0
[2024-07-11 03:37] LABS: Phosphorus 2.8 mg/dL (2.4-5.1)
[2024-07-11 05:18] LABS: Band Neutrophils % (manual) 5; Lymphocytes % (manual) 41 (10.0-50.0); Metamyelocytes % 1; Monocytes % (manual) 1 (0-12); Myelocytes % 1; Platelet Estimate Adequate
--- NOTE | 2024-07-11 09:03 | DVHPN2 ---
Assessment/Plan Assessment/Plan Progress note 59 F admitted for SOB, found to have multifocal PNA. 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 seen by me during rounds pending quantiferon result. low suspicion of active TB, will decide on latent based on this Physical exam Alert oriented x3 b/l scattered rhonchi s1 s2 rrr no murmur abdomen soft nontender trace le edema labs ekg imaging reviewed assessment and plan acute asthma exacerbation multifocal PNA, atypical vs fungal vs viral possible latent TB morbid obesity leukocytosis maintain spo2 >95% albuterol nebs empiric ceft and azithro sputum culture, quantiferon, legionela, HIV prednisone diet regular dvt ppx ambilatory Plan discussed with: Patient My Orders Orders - LETTY WEAVER MD Procedure Category Date Status Time Initiate Vte BAUTISTA 07/11/24 In Process Prophylaxis 07:41 Date of Service: Jul 11, 2024 Billing Provider: LETTY WEAVER MD Common Visit Codes: [id number] INP/OBS CARE(MOD) LETTY WEAVER MD Jul 11, 2024 09:03
[2024-07-12 01:00] VITALS: BP 148/76; PULSE 100; RESP 17; TEMP 98.1; O2SAT 92
--- NOTE | 2024-07-12 05:45 | DVH ---
CHEST RADIOGRAPH Indication: interval changes Technique: Single frontal view of the chest was obtained Comparison: None IMPRESSION: Heart appears normal in size. The lungs appear clear without focal airspace opacity, effusion, or pn eumothorax
[2024-07-12 07:17] VITALS: PULSE 97; RESP 16; O2SAT 94
[2024-07-12 07:25] VITALS: PULSE 95; RESP 16; O2SAT 96
[2024-07-12] MEDS ORDERED: LEVO500T91 PO (08:54)
[2024-07-12] MEDS ORDERED: PRED20TA2 PO (08:54)
--- NOTE | 2024-07-12 08:55 | DVHDS2 ---
Discharge Summary Date of Admission Jul 08, 2024 at 19:09 Date of Discharge: Jul 12, 2024 Labs/Diagnostic Data: Laboratory Results Test 07/11/24 02:30 07/10/24 10:39 07/09/24 12:57 07/09/24 07:38 White Blood Count 19.3 10^3/uL (4.4-10.8) Red Blood Count 4.29 10^6/uL (4.0-5.20) Hemoglobin 12.8 g/dL (12.2-16.2) Hematocrit 38.1 % (36.0-46.0) Mean Corpuscular Volume 88.9 fL (80.0-100.0) Mean Corpuscular Hemoglobin 29.8 pg (28.0-32.0) Mean Corpuscular Hemoglobin Concent 33.5 g/dL (32.0-36.0) Red Cell Distribution Width 13.9 % (11.8-14.3) Platelet Count 318 10^3/uL (140-450) Mean Platelet Volume 8.8 fL (6.9-10.8) Neutrophils (%) (Auto) % (37.0-80.0) Lymphocytes (%) (Auto) % (10.0-50.0) Monocytes (%) (Auto) % (0.0-12.0) Basophils (%) (Auto) % (0.0-2.0) Neutrophils # (Auto) 10 ^3/uL (1.6-8.6) Lymphocytes # (Auto) 10 ^3/uL (0.4-5.4) Monocytes # (Auto) 10 ^3/uL (0-1.3) Differential Total Cells Counted 100.0 (100) Neutrophils % (Manual) 51 (37.0-80.0) Band Neutrophils % (Manual) 5 Lymphocytes % (Manual) 41 (10.0-50.0) Monocytes % (Manual) 1 (0-12) Eosinophils % (Manual) 0 (0-7) Basophils % (Manual) 0 (0.0-2.0) Metamyelocytes % (manual) 1 Myelocytes % (Manual) 1 Promyelocytes % (Manual) 0 Blast Cells % (Manual) 0 Reactive Lymphocytes 0 Platelet Estimate Adequate Sodium Level 140 mmol/L (136-145) Potassium Level 3.9 mmol/L (3.5-5.1) Chloride Level 105 mmol/L (98-107) Carbon Dioxide Level 26 mmol/L (20-31) Anion Gap 9 (5-15) Blood Urea Nitrogen 18 mg/dL (9-23) Creatinine 0.72 mg/dL (0.550-1.02) Glomerular Filtration Rate Calc 96 mL/min (>90) BUN/Creatinine Ratio 25.0 (10.0-20.0) Serum Glucose 120 mg/dL (74-106) Calcium Level 9.1 mg/dL (8.7-10.4) Phosphorus Level 2.8 mg/dL (2.4-5.1) Magnesium Level 2.4 mg/dL (1.6-2.6) Nucleated Red Blood Cells 2.0 % Eosinophils (%) (Auto) 0.2 % (0.0-7.0) Eosinophils # (Auto) 0 10 ^3/uL (0-0.8) Basophils # (Auto) 0 10 ^3/uL (0-0.2) HIV (1&2) Antibody Negative (Negative) Test 07/08/24 17:41 07/08/24 13:17 07/08/24 12:00 07/08/24 11:08 Influenza Type A Antigen Negative (Negative) Influenza Type B Antigen Negative (Negative) SARS-CoV-2 Antigen (Rapid) Negative (NEGATIVE) Troponin I High Sensitivity 7 ng/L (</=34) Lactic Acid Level 1.9 mmol/L (0.4-2.0) D-Dimer, Quantitative 0.81 mg/L FEU (0.0-0.49) B-Type Natriuretic Peptide 33.34 pg/mL (0-100) Test 07/08/24 11:00 Urine Color Yellow (Yellow) Urine Clarity Clear (Clear) Urine pH 6.0 (5.0-9.0) Urine Specific [place] 1.017 (1.001-1.035) Urine Protein Trace (Negative) Urine Ketones 1+ (Negative) Urine Blood Negative /uL (Negative) Urine Nitrite Negative (Negative) Urine Bilirubin Negative (Negative) Urine Urobilinogen Normal mg/dL (Negative) Urine Leukocyte Esterase Trace /uL (Negative) Urine RBC 2 /hpf (0 - 4) Urine Microscopic WBC 1 /HPF (0-5) Urine Squamous Epithelial Cells Few /hpf (<5) Urine Bacteria None seen /hpf (None Seen) Urine Mucus Few (None Seen) Urine Glucose Normal mg/dL (Normal) Other Laboratory Tests 07/11/24 02:30 Brief Hx & Hospital Course: 59 yo F admitted with multifocal pna. patient had prior hx of positive PPD, but never treated. patient has no O2 requirements, on iv abx improving symptomatically. Patient seen by pulmonary. stable to discharge and follow up with pulmonary for result and possible treatment for LTBI if indicated. Condition at Discharge: Good Final Diagnosis/Problems List acute asthma exacerbation multifocal PNA, atypical vs fungal vs viral possible latent TB morbid obesity leukocytosis Discharge Disposition: Home Discharge Instruct/Medications Diet: Cardiac 2g Na,low cholest Activity: No Restrictions, As Tolerated Follow Up/Referral: pulmonary Medications: levofloxacin prednisone 39 Discharge Statement: "Patient was advised to return to the ER or call 911 if any headaches, dizziness, shortness of breath, chest pain, abdominal pain, bleeding, fevers, or worsening of medical condition. Patient was counseled about treatment plan, medications, possible side effects, patientverbalized understanding. All questions were answered to the best of my ability. This discharge took greater then 30 minutes in planning, reviewing documentation, counseling the patient, and discussing with other team members." ASSESSMENT ASSESSMENT Assessment multifocal pneumonia, atypical vs NMT Date of Service: Jul 12, 2024 Billing Provider: LETTY WEAVER MD Common Visit Codes: [id number]/OBS DISCH DAY >30min LETTY WEAVER MD Jul 12, 2024 08:55
[2024-07-12 09:00] VITALS: BP 132/88; PULSE 92; RESP 16; TEMP 97.5; O2SAT 94
[2024-07-12 09:05] LABS: QuantiFERON-TB Gold Plus Negative (Negative)
[2024-07-12 10:54] VITALS: BP 132/88; PULSE 92; RESP 16; TEMP 97.5; O2SAT 94
== END 2024-07-12 12:45 | disposition home or self-care (01) | DRG 720 ==
LOC: ER 10:40 → OVERFLOW 19:09 → WEST WING 22:30
PROVIDERS: ADMIT Nurse Practitioner; ATTEND Student in an Organized Health Care Education/Training Program
DX: A41.9 Sepsis, unspecified organism (principal); J12.9 Viral pneumonia, unspecified; J45.901 Unspecified asthma with (acute) exacerbation; E11.9 Type 2 diabetes mellitus without complications; A15.8 Other respiratory tuberculosis; D72.829 Elevated white blood cell count, unspecified; Z20.822 Contact with and (suspected) exposure to COVID-19; E66.01 Morbid (severe) obesity due to excess calories; E78.5 Hyperlipidemia, unspecified; I10 Essential (primary) hypertension; Z83.3 Family history of diabetes mellitus; Z79.4 Long term (current) use of insulin; Z79.899 Other long term (current) drug therapy; R06.03 Acute respiratory distress; Z68.41 Body mass index [BMI] 40.0-44.9, adult
CPT/HCPCS: 36415; 71045; 71046; 71275; 80048; 81001; 83605; 83735; 83880; 84100; 84484; 85007; 85025; 85027; 85379; 86703; 87040; 87278; 87426; 87804; 93005; 93306; 94640; 94644; 94668; 96365; 96375; 99291; G0378